=== PATIENT | male | born 1990 | race Caucasian/White ===

== ENCOUNTER 2017-09-19 09:03 | Outpatient (RCR) | payer BC ==
[2017-09-19 09:52] LABS: SEMEN VOLUME 3.7 ML (1.5-5.0)
== END 2017-12-18 | disposition home or self-care (01) ==
LOC: LAB 09:03
PROVIDERS: ATTEND Obstetrics & Gynecology
DX: N46.9 Male infertility, unspecified (principal)
CPT/HCPCS: 89320